=== PATIENT | female | born 2005 | race Caucasian/White ===

== ENCOUNTER 2025-05-24 02:55 | Emergency (ER) | payer BC, SELFPAY ==
[2025-05-24 02:57] VITALS: BP 105/73
[2025-05-24 04:00] VITALS: BP 112/64
[2025-05-24 04:01] VITALS: BP 112/64
[2025-05-24 05:00] VITALS: BP 102/72
--- NOTE | 2025-05-24 07:33 | ED.GENMED ---
History of Present Illness
General
Chief Complaint: Alcohol Problem
Source: patient
Exam Limitations: none
Time Seen by Provider: 05/24/25 07:28
History of Present Illness
History of Present Illness:
19-year-old female brought here from college after being found by her friend on the ground unresponsive. They state they were drinking alcohol. Patient has been here overnight for several hours and is now alert. She states she is feeling much
better. There is no vomiting. No suspected foul play. She is with her friend. She denies use of any other drugs. She admits to just drinking too much last night. She denies chest pain or shortness of breath. She was given a liter of fluids
while waiting here.
Phy Exam
Physical Exam
Physical Exam:
General: Well-appearing female no acute respiratory distress
HEENT normal cephalic atraumatic
Heart: Slightly tachycardic
Lungs: Clear no wheeze abdomen soft nontender
Neurologic exam alert oriented normal gait conversing appropriately no slurred speech pupils equal round reactive to light
Scores
Withdrawal Assessment of Alcohol
Withdrawal Assessment Completed?: No
Course
Vital Signs
Initial and Last Documented VS:
Initial Vital Signs
Temp Pulse Resp BP Pulse Ox
97.3 F 81 17 105/73 98
05/24/25 02:57 05/24/25 02:57 05/24/25 02:57 05/24/25 02:57 05/24/25 02:57
Last Documented Vital Signs
Temp Pulse Resp BP Pulse Ox
97.3 F 83 18 102/72 99
05/24/25 02:57 05/24/25 05:00 05/24/25 05:00 05/24/25 05:00 05/24/25 03:02
MDM/Problems Addressed
Differential Diagnosis Includes:
Patient brought here after ingesting too much alcohol and being found unresponsive by friend. No suspected foul play. She was with her friends. Denies use of any other drugs. She is now alert and oriented and ambulatory and tolerating oral
fluids. She is given a liter fluid while waiting. No indication for any further intervention. Stable for discharge with her friend
*Pulse Oximetry
SaO2: 99
Oxygen Mode of Delivery: Room air
Patient hypoxic: no
*Critical Care Note
Total Time (30-74mins, 75-104mins- exclusive of procedures): Not Applicable
ED Attending Note
-
Portions of this chart may have been created with voice recognition software.� Occasional wrong word or��sound alike� substitutions may have occurred due to the inherent limitations of voice recognition software.
Discharge Plan
Departure
Patient Disposition: Home (Routine Discharge)
Date of Disposition: 05/24/25
Time of Disposition: 07:35
Patient with high blood pressure during this ER visit?: No
Discharge Problem:
Alcohol intoxication
Instructions: Alcohol Use Disorder (DC)
Prescriptions:
No Action
Unobtainable
0
Referrals:
UNKNOWN - PT DOES,NOT KNOW [Family Provider]
Activity Restrictions/Additional Instructions:
Rest. Stay hydrated. Return if worse otherwise
Interventions
Interventions:
*Risk Screen - Suicide Last Done: 05/24/25 02:57
*General Assessment Last Done: 05/24/25 02:57
*Neglect/Abuse Screening Last Done: 05/24/25 02:57
*ED- Fall Risk Assessment Last Done: 05/24/25 02:57
*ED COVID-19 Vaccine History Last Done: 05/24/25 02:57
ED- Neurological Assessment Last Done: 05/24/25 03:15
ED-Psychological Assessment Last Done: 05/24/25 03:16
Discharge Date and Time
Print Language: TAJIK
--- NOTE | 2025-05-24 07:49 | EDRN ---
Reviewed discharge instructions with patient. Verbalized understanding.
[2025-05-24 07:50] VITALS: BP 114/67
== END 2025-05-24 07:53 | disposition home or self-care (01) ==
LOC: EMR 02:55
PROVIDERS: EMERGENCY PHYSICIAN Emergency Medicine
DX: F10.129 Alcohol abuse with intoxication, unspecified (principal)
CPT/HCPCS: 99282